=== PATIENT | female | born 1945 | race Caucasian/White ===

== ENCOUNTER → 2019-07-15 | Outpatient (REF) | payer MEDICARE | LOC: M LABDRWAD 12:56 | PROVIDERS: ATTEND Physician Assistant | DX: R19.7 Diarrhea, unspecified (principal) ==

== ENCOUNTER → 2019-07-16 | Outpatient (REF) | payer MEDICARE | LOC: M LABDRWAD 12:58 | PROVIDERS: ATTEND Physician Assistant | DX: R19.7 Diarrhea, unspecified (principal) ==

== ENCOUNTER 2020-09-21 13:03 | Inpatient (IN) | payer MEDICARE ==
[~2020-09-21] VITALS: Ht 162.6 cm; Wt 74.7 kg
[2020-09-21 15:38] LABS: BASO # 0.1 10^3/uL (0.0-0.2); BASO % 0.9 % (0.0-1.0); EOS # 0.2 10^3/uL (0.0-0.5); EOS % 1.8 % (0.0-3.0); HEMATOCRIT 44.3 % (36.0-47.0); HEMOGLOBIN 13.8 g/dl (12.0-15.5); LYMPH % 23.1 % (24.0-44.0); MEAN CORPUSCULAR HEMOGLOBIN 27.8 pg (27.0-33.0); MEAN CORPUSCULAR HGB CONC 31.2 g/dl (32.0-36.5); MEAN CORPUSCULAR VOLUME 89.3 fl (80.0-96.0); MONO # 0.7 10^3/uL (0.0-0.8); MONO % 8.2 % (2.0-8.0); NEUTROPHILS # 5.8 10^3/uL (1.5-8.5); NEUTROPHILS % 65.7 % (36.0-66.0); PLATELET COUNT, AUTOMATED 248 10^3/uL (150-450); RED BLOOD COUNT 4.96 10^6/uL (4.00-5.40); WHITE BLOOD COUNT 8.8 10^3/uL (4.0-10.0)
[2020-09-21 16:11] LABS: BLOOD UREA NITROGEN 14 MG/DL (7-18); CALCIUM LEVEL 7.4 MG/DL (8.8-10.2); CARBON DIOXIDE LEVEL 16 MEQ/L (21-32); CHLORIDE LEVEL 86 MEQ/L (98-107); CREATININE FOR GFR 0.71 MG/DL (0.55-1.30); GLOMERULAR FILTRATION RATE > 60.0 (>39); GLUCOSE, FASTING 95 MG/DL (70-100); POTASSIUM SERUM 3.2 MEQ/L (3.5-5.1); SODIUM LEVEL 151 MEQ/L (136-145)
[2020-09-21] MEDS ORDERED: BACITAB PO (17:30)
[2020-09-21] MEDS ORDERED: DORZ2SOL5 OU (17:30)
[2020-09-21] MEDS ORDERED: SERT50TA29 PO (17:30)
[2020-09-21] MEDS ORDERED: XALA0.007 OU (17:30)
[2020-09-21] MEDS ORDERED: VITA-158 PO (17:30)
[2020-09-21] MEDS ORDERED: HYDR-643 PO ×2 (17:30)
[2020-09-21] MEDS ORDERED: D31000TA2 PO (17:30)
[2020-09-21] MEDS ORDERED: SIMV20TA22 PO (17:30)
[2020-09-21] MEDS ORDERED: FIBE625T PO (17:30)
[2020-09-21] MEDS ORDERED: POTASSIUM CHLORIDE 10 MEQ SR TABLET PO ONE (18:25)
--- NOTE | 2020-09-21 18:33 | HPEPDOC ---
[facility] Medical History & Physical Date of Admission Sep 21, 2020 Date of Service: Sep 21, 2020 History and Physical CHIEF COMPLAINT: diarrhea HISTORY OF PRESENT ILLNESS: 74 yo F with a hx of Alzheimer's disease and debility, brought to ER by her daughter, with a complaint of chronic watery diarrhea for the past 12 months, associated with poor PO intake and a weight loss of ~30 lbs. The majority of the history was obtained from the patient's daughter, as the patient's dementia is advanced. The primary caregiver is the patient's son, who lives with her. There has been no laxative use. No blood in stool has been seen. Abdominal distension is a concern from family. Diarrhea is watery, with small pieces of brown stool. Patient had 12 loose bowel movements yesterday. Further, patient has been experiencing frequent falls and is unable to ascend stairs. Finally, patient has gained ~40 lbs since her prior weight loss, despite a reduced appetite and PO intake. On arrival to the ER, patient was awake, and alert but not oriented to person place or time which is her baseline. Vitals review. T 97.8. HR 66. RR 18. BP 143/98. Pulse ox 97%.WBC 8.8. Hgb 13.8. PLT 248. Na 151. K 3.2. Cl 86. CO2 14. AG 49. AST/ALT 24/30. POC ABG showed a pH 7.475, although blood chemisty bicarb indicates metabolic acidosis. Blood cultures sent from ER. GI panel sent. Patient will be admitted to hospitalist service for management of metabolic acidosis 2/2 copious GI losses. PAST MEDICAL HISTORY: Alzheimer's disease Debility Hx of frequent falls PAST SURGICAL HISTORY: reported as none SOCIAL HISTORY: Patient denies smoking Patient denies etoh use Patient denies illicit drug use ALLERGIES: Please see below. REVIEW OF SYSTEMS: review of systems limited, obtained as observations from daughter. Noted in HPI. HOME MEDICATIONS: Please see below. PHYSICAL EXAMINATION: VITAL SIGNS: please see below General: NAD, comfortable HEENT: PERRLA, EOMI, sclerae clear Neck: supple, normal ROM, no JVD Respiratory: lungs CTAB, no wheeze, no rales, no crackles CVS: RRR, normal S1, S2, no murmurs Abdo: soft, no masses, no hepatosplenomegaly, BS+, no rebound tenderness Extremities: trace edema. MSK: no joint deformities, normal ROM Neuro: no focal neuro deficits, moving all 4 extremities, CN2-12 intact. Strength 5/5 in all 4 extremities. No nystagmus. Psych: calm, cooperative, AAO x 3 LABORATORY DATA: See below. MICROBIOLOGY: Please see below. ASSESSMENT: HISTORY OF PRESENT ILLNESS: 74 yo F with a hx of Alzheimer's disease and debility, brought to ER by her daughter, with a complaint of chronic watery diarrhea for the past 12 months, associated with poor PO intake and a weight loss of ~30 lbs, followed by weight gain and abdominal distension with edema. Patient is admitted to hospitalist service for workup of chronic diarrhea, metabolic acidosis and edema. PLAN: Metabolic anion gap acidosis with hypernatremia 2/2 chronic copious diarrhea - afebrile without leukocytosis - despite edema, appears clinically fluid depleted - Free water deficit 2.5L - will start D5W with 50 meq sodium bicarb at 125 cc/hr - D/w Dr. Jayjay Lim, nephrology consult placed - obtain ABG Hypernatremia - free water deficit 2.5L - start D5W with 50 meq bicarb Chronic diarrhea - ongoing for 12 months, non bloody - reduced PO intake - replace fluid - check stool lactoferrin, stool calprotectin - check GI panel - no leukocytosis or fever, will defer antibiotics at this time Peripheral edema - daughter reports a 40 lbs weight gains since dramatic 30 lb weight loss - BNP slightly elevated 450 - check 2D echo Alzheimer's Dementia - Frequent falls - PT/OT DVT ppx: heparin. TEDs Dispo: Pending clinical improvement. Admission expected to last > 2 midnights. Vital Signs Vital Signs Date Time Temp Pulse Resp B/P (MAP) Pulse Ox O2 Delivery O2 Flow Rate FiO2 09/21/20 15:37 Automatic Cuff (NIBP) Right Arm 09/21/20 13:04 97.8 66 18 97 Room Air Laboratory Data Labs 24H Laboratory Tests 2 09/21/20 15:29: Immature Granulocyte % (Auto) 0.3, Neutrophils (%) (Auto) 65.7, Lymphocytes (%) (Auto) 23.1L, Monocytes (%) (Auto) 8.2H, Eosinophils (%) (Auto) 1.8, Basophils (%) (Auto) 0.9, Neutrophils # (Auto) 5.8, Lymphocytes # (Auto) 2.0, Monocytes # (Auto) 0.7, Eosinophils # (Auto) 0.2, Basophils # (Auto) 0.1, Nucleated Red Blood Cells % (auto) 0.0, Anion Gap 49H, Glomerular Filtration Rate > 60.0, Calcium Level 7.4L 09/21/20 17:22: POC pH (Misc Panel) 7.475H, POC Base Excess (Misc Panel) -5.0L, POC Saturated Percent O2 (Misc) 98, POC pO2 (Misc Panel) 93.0, POC pCO2 (Misc Panel) 25.3L, POC HCO3 (Misc Panel) 18.6L, POC Total CO2 (Misc Panel) 19.0L CBC/BMP Laboratory Tests 09/21/20 15:29 Home Medications Scheduled Ascorbic Acid (Vitamin C) 500 Mg Tablet, 500 MG PO DAILY Calcium Polycarbophil (Fibercon) 625 Mg Tablet, 625 MG PO DAILY Cholecalciferol (Vitamin D3) (Vitamin D3) 1,000 Unit Tablet, 1,000 UNITS PO DAILY Dorzolamide HCl/Timolol Maleat (Dorzolamide-Timolol Eye Drops) 10 Ml Drops, 1 DROP OU BID Hydroxyzine HCl (Hydroxyzine HCl) 10 Mg Tablet, 20 MG PO QHS L.acidoph/L.bulg/B.bif/S.therm (Bacid Caplet) 1 Each Tablet, 1 TAB PO DAILY Latanoprost (Xalatan) 0.005% 2.5ML Drops, 1 DROP OU QHS Sertraline HCl (Sertraline HCl) 50 Mg Tablet, 50 MG PO DAILY Simvastatin (Simvastatin) 20 Mg Tablet, 20 MG PO DAILY Scheduled PRN Hydroxyzine HCl (Hydroxyzine HCl) 10 Mg Tablet, 10 MG PO BID PRN for ANXIETY/AGITATION Allergies Coded Allergies: No Known Drug Allergies (Verified Allergy, Unknown, 09/21/20) Penicillins (Unverified Allergy, Unknown, childhood allergy, 09/21/20) as per daughter, reaction unknown Sulfa (Sulfonamide Antibiotics) (Unverified Allergy, Unknown, childhood allergy, 09/21/20) as per daughter unknown reaction A-FIB/CHADSVASC A-FIB History Current/History of A-Fib/PAF?: No Current PO Anticoag Therapy: No DEANGELO COLLADO MD Sep 21, 2020 18:33
[2020-09-21] MEDS: GASTROGRAFIN SOLUTION 30ML PO SCH ×2 (19:01→19:43)
[2020-09-21 19:26] LABS: ALT/SGPT 30 IU/L (0-32); CPK CREATINE PHOSPHOKINASE 94 U/L (26-192)
[2020-09-21 19:27] LABS: BILIRUBIN,DIRECT 0.1 MG/DL (0.0-0.2); BILIRUBIN,TOTAL 0.6 MG/DL (0.2-1.0); CK-MB VALUE MASS 3.1 NG/ML (<3.6); MB/CK RELATIVE INDEX 3.29 (< OR =4); TOTAL PROTEIN 6.7 GM/DL (6.4-8.2)
[2020-09-21 19:28] LABS: ALBUMIN 3.7 GM/DL (3.2-5.2); LIPASE 227 U/L (73-393); MAGNESIUM LEVEL 2.3 MG/DL (1.8-2.4); NT-PRO BNP 448 PG/ML (<125); TROPONIN I 0.02 NG/ML (< 0.10)
[2020-09-21] MEDS ORDERED: SODIUM BICARBONATE 50 MEQ in D5W 1,000 ML IV SCH (20:00)
[2020-09-21] MEDS ORDERED: ISOVUE-370 76% 100ML VIAL As Ordered ONE (20:30)
--- NOTE | 2020-09-21 21:23 | REPVR ---
PROCEDURE INFORMATION: Exam: CT Abdomen And Pelvis With Contrast Exam date and time: 09/21/2020 8:29 PM Age: 74 years old Clinical indication: Bloating; Additional info: Severe diarrhea, abdominal distension TECHNIQUE: Imaging protocol: Computed tomography of the abdomen and pelvis with contrast. Radiation optimization: All CT scans at this facility use at least one of these dose optimization techniques: automated exposure control; mA and/or kV adjustment per patient size (includes targeted exams where dose is matched to clinical indication); or iterative reconstruction. Contrast material: ISOVUE 370; Contrast volume: 100 ml; Contrast route: INTRAVENOUS (IV); COMPARISON: No relevant prior studies available. FINDINGS: Liver: There is a diffuse decrease in hepatic parenchymal density, consistent with steatosis. Gallbladder and bile ducts: Normal. No calcified stones. No ductal dilation. Pancreas: There is diffuse pancreatic atrophy. Spleen: Normal. No splenomegaly. Adrenal glands: Normal. No mass. Kidneys and ureters: 2.7 cm simple cyst upper pole left kidney. No follow-up suggested. Stomach and bowel: There is increased fluid demonstrated in the colon consistent with the reported history of diarrhea. No mass demonstrated. Appendix: No evidence of appendicitis. Intraperitoneal space: Unremarkable. No free air. No significant fluid collection. Vasculature: Unremarkable. No abdominal aortic aneurysm. Lymph nodes: Unremarkable. No enlarged lymph nodes. Urinary bladder: There is mild diffuse thickening of the wall of the bladder with minimal perivesicular inflammatory changes. Findings may be related to cystitis. Clinical correlation suggested. Reproductive: Unremarkable as visualized. Bones/joints: The spine demonstrates moderate degenerative changes. Moderate to severe central spinal stenosis L2-L3, L3-L4 and L4-L5. Disc space narrowing throughout the lumbar spine. Soft tissues: Unremarkable. Other findings: Osteoporosis. IMPRESSION: 1. There is a diffuse decrease in hepatic parenchymal density, consistent with steatosis. 2. There is diffuse pancreatic atrophy. 3. There is increased fluid demonstrated in the colon consistent with the reported history of diarrhea. No mass demonstrated. 4. There is mild diffuse thickening of the wall of the bladder with minimal perivesicular inflammatory changes. Findings may be related to cystitis. Clinical correlation suggested. COMMENTS: Consistent with the [employer]'s Incidental Findings Committee white paper (J Am Alicia Radiol 2018): Any incidental renal lesion less than 1 cm or classified as too small to characterize, or any incidental cystic renal lesion characterized as simple-appearing, is likely benign. No follow-up imaging is recommended for these lesions per consensus recommendations based on imaging criteria. Electronically signed by: Carlos Manuel Heaton On 09/21/2020 21:24:07 PM
[2020-09-21] MEDS: HEPARIN SOD (PORCINE) 5000UNITS/ML 1ML VIAL/SYRINGE SC SCH (22:00)
[2020-09-21 22:15] LABS: ACETAMINOPHEN LEVEL < 2.0 UG/ML (10.0-30.0); ACETONE/KETONE 2.22 MG/DL (<2.81); ETHYL ALCOHOL (ETHANOL) < 0.003 % (0.000-0.010); SALICYLATE LEVEL < 1.7 MG/DL (5.0-30.0)
[2020-09-21] MEDS ORDERED: OLANZapine 2.5MG TABLET PO ONE (22:55)
[2020-09-21] MEDS ORDERED: ENALAPRIL MALEATE 5 MG TAB PO ONE (23:55)
--- NOTE | 2020-09-21 23:55 | IPNPDOC ---
Text Note Date of Service The patient was seen on 09/21/20. NOTE #hypertensive urgency the patient's BP is in the 190s despite amlodipine will order enalaprilat & upgrade to PCU Michi LAWSON, I+O Michi LAWSON I+O Laboratory Tests 09/21/20 15:29 Vital Signs Date Time Temp Pulse Resp B/P (MAP) Pulse Ox O2 Delivery O2 Flow Rate FiO2 09/21/20 22:38 172/80 (110) 09/21/20 22:20 77 09/21/20 21:31 17 98 Room Air 09/21/20 13:04 97.8 LAURA ZUNIGA MD Sep 21, 2020 23:55
[2020-09-22 00:50] VITALS: BP 166/78
[2020-09-22] MEDS: LATANOPROST 0.005% OPHTH SOLN 2.5 ML OU SCH ×2 (01:55→21:00)
[2020-09-22] MEDS: COSOPT OCUMETER PLUS 10ML (DORZOLAMIDE/TIMOLOL) OU SCH ×3 (01:55→21:00)
[2020-09-22 03:07] LABS: ABG BASE EXCESS -3.3 (-2.0-2.0); ABG HCO3 20.4 MEQ/L (22.0-26.0); ABG O2 SATURATION 98.4 % (95.0-99.0); ABG PARTIAL PRESSURE CO2 32.4 mmHg (35.0-45.0); ABG STANDARD HCO3 21.8 MEQ/L (22.0-26.0); ABG TOTAL CO2 21.4 MEQ/L (23.0-31.0); ABG pH (ARTERIAL) 7.416 UNITS (7.350-7.450)
[2020-09-22 04:00] VITALS: BP 152/98
[2020-09-22 06:02] LABS: BASO # 0.1 10^3/uL (0.0-0.2); BASO % 0.6 % (0.0-1.0); EOS # 0.2 10^3/uL (0.0-0.5); EOS % 1.6 % (0.0-3.0); HEMATOCRIT 38.9 % (36.0-47.0); HEMOGLOBIN 12.4 g/dl (12.0-15.5); LYMPH # 2.2 10^3/uL (1.5-5.0); LYMPH % 21.1 % (24.0-44.0); MEAN CORPUSCULAR HGB CONC 31.9 g/dl (32.0-36.5); MEAN CORPUSCULAR VOLUME 87.8 fl (80.0-96.0); MONO # 0.8 10^3/uL (0.0-0.8); MONO % 7.4 % (2.0-8.0); NEUTROPHILS # 7.1 10^3/uL (1.5-8.5); NEUTROPHILS % 68.8 % (36.0-66.0); PLATELET COUNT, AUTOMATED 239 10^3/uL (150-450); RED BLOOD COUNT 4.43 10^6/uL (4.00-5.40); WHITE BLOOD COUNT 10.3 10^3/uL (4.0-10.0)
[2020-09-22] MEDS: HEPARIN SOD (PORCINE) 5000UNITS/ML 1ML VIAL/SYRINGE SC SCH ×2 (06:48→14:00)
--- NOTE | 2020-09-22 06:52 | REP ---
INDICATION: assess for fluid overload COMPARISON: None. TECHNIQUE: Portable AP view of the chest FINDINGS: Mediastinum and cardiac silhouette are within normal limits. Lung briceno demonstrate chronic appearing changes although subtle left lower lobe airspace disease cannot be excluded and should be correlated clinically. No obvious effusion. No pneumothorax. Skeletal structures demonstrate age-related osteopenia and degenerative changes. IMPRESSION: Chronic changes. Cannot exclude subtle superimposed early left lower lobe airspace disease. <Electronically signed by Donnie Hernandez > 09/22/20 [id number]
[2020-09-22 07:40] LABS: ALBUMIN 3.3 GM/DL (3.2-5.2); ALT/SGPT 26 U/L (12-78); BILIRUBIN,TOTAL 0.6 MG/DL (0.2-1.0); BLOOD UREA NITROGEN 15 MG/DL (7-18); CALCIUM LEVEL 8.9 MG/DL (8.8-10.2); CARBON DIOXIDE LEVEL 22 MEQ/L (21-32); CHLORIDE LEVEL 113 MEQ/L (98-107); CREATININE FOR GFR 0.88 MG/DL (0.55-1.30); GLOMERULAR FILTRATION RATE > 60.0 (>39); GLUCOSE, FASTING 144 MG/DL (70-100); IRON (FE) 48 UG/DL (50-170); MAGNESIUM LEVEL 2.1 MG/DL (1.8-2.4); PERCENT SATURATION 15.8 % (13.2-45.0); SODIUM LEVEL 141 MEQ/L (136-145); TOTAL IRON BINDING CAPACITY 303 UG/DL (250-450); TOTAL PROTEIN 6.2 GM/DL (6.4-8.2)
[2020-09-22 08:00] VITALS: BP 134/64
[2020-09-22] MEDS ORDERED: cefTRIAXone SOD 1 GM in D5W MINI-BAG PLUS 50 ML IV SCH (09:00)
[2020-09-22] MEDS: SIMVASTATIN 20 MG TAB PO SCH (11:27)
[2020-09-22] MEDS: SERTRALINE HCL 50 MG TAB PO SCH (11:27)
[2020-09-22] MEDS: VITAMIN D 1,000 INTERNATIONAL UNITS TABLET PO SCH (11:27)
[2020-09-22] MEDS: LACTOBACILLUS ACIDOPHILUS CAP (BACID) PO SCH (11:28)
[2020-09-22] MEDS: ASCORBIC ACID 500 MG TAB PO SCH (11:28)
[2020-09-22 12:00] VITALS: BP 151/79
[2020-09-22 16:00] VITALS: BP 157/66
--- NOTE | 2020-09-22 17:51 | IPNPDOC ---
Date Seen The patient was seen on 09/22/20. Progress Note SUBJECTIVE: Patient seen and examined at bedside with her daughter. She did well overnight. Did have an episode of hypertensive urgency which is treated with enalapril. Patient is behaviorally appropriate. She is pleasant and cooperative. Daughter states that she is having particularly feelings about taking her home. She feels that the patient would best be cared for in a nursing facility due to her advanced Alzheimer's. Her diarrhea frequency seems to be improving. She had approximately 6 bowel movements overnight sure watery. No blood. Patient is afebrile with stable vital signs. OBJECTIVE PHYSICAL EXAMINATION: VITAL SIGNS: please see below General: NAD, comfortable HEENT: PERRLA, EOMI, sclerae clear Neck: supple, normal ROM, no JVD Respiratory: lungs CTAB, no wheeze, no rales, no crackles CVS: RRR, normal S1, S2, no murmurs Abdo: soft, no masses, no hepatosplenomegaly, BS+, no rebound tenderness Extremities: no edema, pulses 2+ MSK: no joint deformities, normal ROM Neuro: no focal neuro deficits, moving all 4 extremities, CN2-12 intact. Strength 5/5 in all 4 extremities. No nystagmus. Psych: calm, cooperative, AAO x 3 LABORATORY DATA, IMAGING STUDIES, MICROBIOLOGY: Please see below. CT abdomen pelvis w IV contrast (09/21/20) 1. There is a diffuse decrease in hepatic parenchymal density, consistent with steatosis. 2. There is diffuse pancreatic atrophy. 3. There is increased fluid demonstrated in the colon consistent with the reported history of diarrhea. No mass demonstrated. 4. There is mild diffuse thickening of the wall of the bladder with minimal perivesicular inflammatory changes. Findings may be related to cystitis. Clinical correlation suggested. Echocardiogram: Echocardiogram was ordered on 09/21/20, but the patient refused unable to comply with testing DVT prophylaxis ordered?: Heparin ASSESSMENT AND PLAN: HISTORY OF PRESENT ILLNESS: 74 yo F with a hx of Alzheimer's disease and debility, brought to ER by her daughter, with a complaint of chronic watery diarrhea for the past 12 months, associated with poor PO intake and a weight loss of ~30 lbs, followed by weight gain and abdominal distension with edema. Patient is admitted to hospitalist service for workup of chronic diarrhea, metabolic acidosis and edema. PLAN: Metabolic anion gap acidosis with hypernatremia 2/2 chronic copious diarrhea - afebrile without leukocytosis - despite edema, appears clinically fluid depleted - Free water deficit 2.5L - recived D5W with 50 meq sodium bicarb at 125 cc/hr - BMP greatly improved today, anion gap has closed - patient tolerating PO intake - DC IVF Hypernatremia - free water deficit 2.5L - s/p D5W with 50 meq bicarb - resolved Chronic diarrhea - ongoing for 12 months, non bloody - reduced PO intake - s/p IVF - stool lactoferrin, stool calprotectin negative - check GI panel - negative - no leukocytosis or fever, will defer antibiotics at this time - will start high fiber diet. if not improvement, consider trial with lomotil on limit basis given age and Alzheimers Peripheral edema - daughter reports a 40 lbs weight gains since dramatic 30 lb weight loss - BNP slightly elevated 450 - check 2D echo - patient refused testing, was unable to be reoriented - will not give diuretics at this stage due to frequent watery diarrhea Alzheimer's Dementia Frequent falls - PT/OT DVT ppx: heparin. TEDs Dispo: Pending clinical improvement. Admission expected to last > 2 midnights. VS, I&O, 24H[facility] Vital Signs/I&O Vital Signs Date Time Temp Pulse Resp B/P (MAP) Pulse Ox O2 Delivery O2 Flow Rate FiO2 09/22/20 12:00 98.3 71 18 151/79 (103) 100 Room Air I&O- Last 24 Hours up to 6 AM 09/22/20 06:00 Intake Total 120 ml Output Total 400 ml Balance -280 ml Laboratory Data 24H LABS Laboratory Tests 2 09/21/20 18:15: Lactic Acid Level 1.6, Whole Blood Ionized Calcium 4.5, Magnesium Level 2.3, Total Bilirubin 0.6, Direct Bilirubin 0.1, Aspartate Amino Transf (AST/SGOT) 24, Alanine Aminotransferase (ALT/SGPT) 30, Alkaline Phosphatase 67, Ammonia 17, Total Creatine Kinase 94, Creatine Kinase MB 3.1, Creatine Kinase MB Relative Index 3.29, Troponin I 0.02, DP-Pas-L-Type Natriuretic Peptide 448H, Total Protein 6.7, Albumin 3.7, Albumin/Globulin Ratio 1.2, Lipase 227, Thyroid Stimulating Hormone (TSH) 1.080, Salicylates Level < 1.7L, Acetaminophen Level < 2.0L, Ethyl Alcohol Level < 0.003, B-Hydroxybutyrate 2.22 09/22/20 02:59: Blood Gas Bicarbonate Standard 21.8L, Arterial Blood pH 7.416, Arterial Blood Partial Pressure CO2 32.4L, Arterial Blood Partial Pressure O2 111.0H, Arterial Blood Total CO2 21.4L, Arterial Blood HCO3 20.4L, Arterial Blood Base Excess - 3.3L, Arterial Blood Oxygen Saturation 98.4 09/22/20 03:38: Urine Color YELLOW, Urine Appearance CLOUDYH, Urine pH 7.0, Urine Specific [place] 1.027, Urine Protein NEGATIVE, Urine Glucose (UA) NEGATIVE, Urine Ketones NEGATIVE, Urine Blood 2+H, Urine Nitrite POSITIVEH, Urine Bilirubin NEGATIVE, Urine Urobilinogen 0.2, Urine Leukocyte Esterase 3+H, Urine WBC (Auto) TNTCH, Urine RBC (Auto) 37H, Urine Hyaline Casts (Auto) 0, Urine Bacteria (Auto) 1+H, Urine Squamous Epithelial Cells 0, Urine Mucus (Auto) SMALL, Urine Sperm ( Auto) 09/22/20 03:51: 09/22/20 05:29: Immature Granulocyte % (Auto) 0.5, Neutrophils (%) (Auto) 68.8H, Lymphocytes (%) (Auto) 21.1L, Monocytes (%) (Auto) 7.4, Eosinophils (%) (Auto) 1.6, Basophils (%) (Auto) 0.6, Neutrophils # (Auto) 7.1, Lymphocytes # (Auto) 2.2, Monocytes # (Auto) 0.8, Eosinophils # (Auto) 0.2, Basophils # (Auto) 0.1, Nucleated Red Blood Cells % (auto) 0.0, Anion Gap 6L, Glomerular Filtration Rate > 60.0, Calcium Level 8.9#, Magnesium Level 2.1, Iron Level 48L, Total Iron Binding Capacity 303, Transferrin % Saturation 15.8, Total Bilirubin 0.6, Aspartate Amino Transf (AST/SGOT) 21, Alanine Aminotransferase (ALT/SGPT) 26, Alkaline Phosphatase 57, Total Protein 6.2L, Albumin 3.3, Albumin/Globulin Ratio 1.1L 09/22/20 10:49: Lab Scanned Report Miscellaneous Lab CBC/BMP Laboratory Tests 09/22/20 05:29 Microbiology Microbiology 09/22/20 Urine Culture, Received Pending 09/22/20 Stool Occult Blood (RICKY) - Final, Complete 09/22/20 Stool Lactoferrin - Final, Complete 09/22/20 Gastrointestinal Tract Panel (PCR) - Final, Complete 09/21/20 Respiratory Virus Panel (PCR) (RICKY) - Final, Complete 09/21/20 Blood Culture, Received Pending 09/21/20 Blood Culture, Received Pending DEANGELO COLLADO MD Sep 22, 2020 17:51
--- NOTE | 2020-09-22 19:45 | ECGEPIP ---
[facility] - ED Test Date: 2020-09-21 Pat Name: DINAH SMITH Department: Room: - Gender: Female Biology Tutor: ALONZO : 1945 Requested By: SCOTTIE Kaufman PA-C Order Number: [id number] Reading MD: Rosario Valverde Measurements Intervals [place] Rate: 64 P: 51 FL: 140 QRS: 30 QRSD: 60 T: 27 QT: 422 QTc: 435 Interpretive Statements Normal sinus rhythm Nonspecific ST abnormality No prior Electronically Signed on 09-22-2020 19:46:10 EDT by Rosario Valverde
[2020-09-22 19:57] VITALS: BP 145/87
[2020-09-22] MEDS ORDERED: FOSFOMYCIN TROMETHAMINE 3 GM POWDER PACKET (MONUROL) PO ONE (20:00)
[2020-09-22] MEDS ORDERED: RAMELTEON 8 MG TAB (ROZEREM) PO PRN (22:00)
[2020-09-23] VITALS: BP_SYST 140; BP_DIAS 70; BP_DIAS 80
[2020-09-23] MEDS: LATANOPROST 0.005% OPHTH SOLN 2.5 ML OU SCH (00:01)
[2020-09-23 04:00] VITALS: BP 106/55
[2020-09-23] MEDS: HEPARIN SOD (PORCINE) 5000UNITS/ML 1ML VIAL/SYRINGE SC SCH ×2 (06:49)
[2020-09-23 07:58] VITALS: BP 121/60
[2020-09-23] MEDS: SIMVASTATIN 20 MG TAB PO SCH (09:18)
[2020-09-23] MEDS: LACTOBACILLUS ACIDOPHILUS CAP (BACID) PO SCH (09:18)
[2020-09-23] MEDS: ASCORBIC ACID 500 MG TAB PO SCH (09:18)
[2020-09-23] MEDS: COSOPT OCUMETER PLUS 10ML (DORZOLAMIDE/TIMOLOL) OU SCH ×2 (09:19)
[2020-09-23] MEDS: VITAMIN D 1,000 INTERNATIONAL UNITS TABLET PO SCH (09:19)
[2020-09-23] MEDS: SERTRALINE HCL 50 MG TAB PO SCH (09:19)
--- NOTE | 2020-09-23 09:56 | DS.PDOC ---
Discharge Summary General Date of Admission Sep 21, 2020 at 19:04 Date of Discharge 09/23/20 Discharge Summary PROCEDURES PERFORMED DURING STAY: [None]. ADMITTING DIAGNOSES: Metabolic anion gap acidosis hypernatremia chronic diarrhea peripheral edema hx of alzheimer's dementia falls DISCHARGE DIAGNOSES: Metabolic anion gap acidosis hypernatremia chronic diarrhea peripheral edema hx of alzheimer's dementia falls hypertensive urgency COMPLICATIONS/CHIEF COMPLAINT: Dehydration. HISTORY OF PRESENT ILLNESS: 74 yo F with a hx of Alzheimer's disease and debility, brought to ER by her daughter, with a complaint of chronic watery diarrhea for the past 12 months, associated with poor PO intake and a weight loss of ~30 lbs. The majority of the history was obtained from the patient's daughter, as the patient's dementia is advanced. The primary caregiver is the patient's son, who lives with her. There has been no laxative use. No blood in stool has been seen. Abdominal distension is a concern from family. Diarrhea is watery, with small pieces of brown stool. Patient had 12 loose bowel movements yesterday. Further, patient has been experiencing frequent falls and is unable to ascend stairs. Finally, patient has gained ~40 lbs since her prior weight loss, despite a reduced appetite and PO intake. On arrival to the ER, patient was awake, and alert but not oriented to person place or time which is her baseline. Vitals review. T 97.8. HR 66. RR 18. BP 143/98. Pulse ox 97%.WBC 8.8. Hgb 13.8. PLT 248. Na 151. K 3.2. Cl 86. CO2 14. AG 49. AST/ALT 24/30. POC ABG showed a pH 7.475, although blood chemisty bicarb indicates metabolic acidosis. Blood cultures sent from ER. GI panel sent. Patient will be admitted to hospitalist service for management of metabolic acidosis 2/2 copious GI losses. HOSPITAL COURSE: Metabolic anion gap acidosis with hypernatremia 2/2 chronic copious diarrhea - afebrile without leukocytosis - despite edema, appears clinically fluid depleted - Free water deficit 2.5L - recived D5W with 50 meq sodium bicarb at 125 cc/hr - BMP greatly improved, anion gap has closed - patient tolerating PO intake - DC IVF Hypernatremia - free water deficit 2.5L - s/p D5W with 50 meq bicarb - resolved Chronic diarrhea - ongoing for 12 months, non bloody - reduced PO intake - s/p IVF - stool lactoferrin, stool calprotectin negative - check GI panel - negative - no leukocytosis or fever, will defer antibiotics at this time - started high fiber diet - Diarrhea improved by day of DC, had 1 BM the day of DC. Volume and frequency of diarrhea declining - patient is able to tolerate PO diet well - to follow up with GI on outpatient basis. Peripheral edema - daughter reports a 40 lbs weight gains since dramatic 30 lb weight loss - BNP slightly elevated 450 - check 2D echo - patient refused testing, was unable to be reoriented - will not give diuretics at this stage due to frequent watery diarrhea HTN - started on amlodipine 2.5 mg qhs Alzheimer's Dementia - family consider placement to [facility] - c/w home regimen, PCP follow up Frequent falls - PT recommending DC home with 30/12 support - discussed with daughter at bedside, the family is able to provided this level of support - family presently discussing possibility of admission to [facility] in near future. DVT ppx: heparin. TEDs DISCHARGE MEDICATIONS: Please see below. ALLERGIES: Please see below. PHYSICAL EXAMINATION ON DISCHARGE: VITAL SIGNS: please see below General: NAD, comfortable HEENT: PERRLA, EOMI, sclerae clear Neck: supple, normal ROM, no JVD Respiratory: lungs CTAB, no wheeze, no rales, no crackles CVS: RRR, normal S1, S2, no murmurs Abdo: soft, no masses, no hepatosplenomegaly, BS+, no rebound tenderness Extremities: trace edema, pulses 2+ MSK: no joint deformities, normal ROM Neuro: no focal neuro deficits, moving all 4 extremities, CN2-12 intact. Strength 5/5 in all 4 extremities. No nystagmus. Psych: calm, cooperative, AAO x 1 LABORATORY DATA: Please see below. IMAGING: CT abdo pelvis with IV contrast (09/21/20): 1. There is a diffuse decrease in hepatic parenchymal density, consistent with steatosis. 2. There is diffuse pancreatic atrophy. 3. There is increased fluid demonstrated in the colon consistent with the reported history of diarrhea. No mass demonstrated. 4. There is mild diffuse thickening of the wall of the bladder with minimal perivesicular inflammatory changes. Findings may be related to cystitis. Clinical correlation suggested. CXR (09/22/20): Chronic changes. Cannot exclude subtle superimposed early left lower lobe airspace disease. PROGNOSIS: fair ACTIVITY: 30/12 supervision, use walker. DIET: High fiber diet DISCHARGE PLAN: DC home with /7 care by family. Plan for high fiber diet to improve diarrhea. Follow up with PCP 3-5 days and with gastroenterology in 1-2 weeks. DISPOSITION: DC home with /7 care by family. DISCHARGE INSTRUCTIONS: . Please follow-up with your primary care doctor within 3-5 days . Please follow-up with gastroenterology within 1-2 weeks . Please taking medications as prescribed. . Please follow a high fiber diet . If you develop worsening diarrhea, bleeding, chest pain, shortness of breath, seizures, nausea, fevers, or otherwise worsening of your symptoms, please call 911 or return to the nearest emergency room ITEMS TO FOLLOWUP ON ON OUTPATIENT: I recommend a 2D echo to be done as outpatient, as patient has refused in hospital. Follow up with GI for chronic diarrhea DISCHARGE CONDITION: [Stable]. TIME SPENT ON DISCHARGE: Greater than minutes. Vital Signs/I&Os Vital Signs Date Time Temp Pulse Resp B/P (MAP) Pulse Ox O2 Delivery O2 Flow Rate FiO2 09/23/20 07:58 97.7 68 17 121/60 (80) 99 Room Air I&O- Last 24 Hours up to 6 AM 09/23/20 06:00 Intake Total 100 ml Output Total 700 ml Balance -600 ml Laboratory Data Labs 24H Laboratory Tests 2 09/22/20 10:49: Lab Scanned Report Miscellaneous Lab Microbiology Microbiology 09/22/20 Urine Culture, Received Pending 09/22/20 Stool Occult Blood (RICKY) - Final, Complete 09/22/20 Stool Lactoferrin - Final, Complete 09/22/20 Gastrointestinal Tract Panel (PCR) - Final, Complete 09/21/20 Respiratory Virus Panel (PCR) (RICKY) - Final, Complete 09/21/20 Blood Culture - Preliminary, Resulted No growth after 24 hours . All specim... 09/21/20 Blood Culture - Preliminary, Resulted No growth after 24 hours . All specim... Discharge Medications Scheduled Amlodipine Besylate (Amlodipine Besylate) 2.5 Mg Tablet, 2.5 MG PO QHS Ascorbic Acid (Vitamin C) 500 Mg Tablet, 500 MG PO DAILY, (Reported) Calcium Polycarbophil (Fibercon) 625 Mg Tablet, 625 MG PO DAILY, (Reported) Cholecalciferol (Vitamin D3) (Vitamin D3) 1,000 Unit Tablet, 1,000 UNITS PO DAILY, (Reported) Dorzolamide HCl/Timolol Maleat (Dorzolamide-Timolol Eye Drops) 10 Ml Drops, 1 DROP OU BID, (Reported) Hydroxyzine HCl (Hydroxyzine HCl) 10 Mg Tablet, 20 MG PO QHS, (Reported) L.acidoph/L.bulg/B.bif/S.therm (Bacid Caplet) 1 Each Tablet, 1 TAB PO DAILY, (Reported) Latanoprost (Xalatan) 0.005% 2.5ML Drops, 1 DROP OU QHS, (Reported) Sertraline HCl (Sertraline HCl) 50 Mg Tablet, 50 MG PO DAILY, (Reported) Simvastatin (Simvastatin) 20 Mg Tablet, 20 MG PO DAILY, (Reported) Scheduled PRN Hydroxyzine HCl (Hydroxyzine HCl) 10 Mg Tablet, 10 MG PO BID PRN for ANXIETY/ AGITATION, (Reported) Allergies Coded Allergies: Penicillins (Unverified Allergy, Unknown, childhood allergy, 09/21/20) as per daughter, reaction unknown Sulfa (Sulfonamide Antibiotics) (Unverified Allergy, Unknown, childhood allergy, 09/21/20) as per daughter unknown reaction DEANGELO COLLADO MD Sep 23, 2020 09:56
[2020-09-23] MEDS ORDERED: AMLO25TA PO (10:25)
[2020-09-25 14:43] LABS: TOTAL 25(OH) VITAMIN D 25.3 NG/ML (30.0-100.0)
== END 2020-09-23 12:58 | disposition home health service (06) | DRG 392 ==
LOC: M ED 13:03 → M ED INP 19:04 → ENRESERV 22:16 → M PCU 09-22 00:45
PROVIDERS: ADMIT Family Medicine; ATTEND Family Medicine
DX: K52.9 Noninfective gastroenteritis and colitis, unspecified (principal); E87.2 Acidosis; E87.0 Hyperosmolality and hypernatremia; F02.80 Dementia in other diseases classified elsewhere, unspecified severity, without behavioral disturbance, psychotic disturbance, mood disturbance, and anxiety; R29.6 Repeated falls; R53.81 Other malaise; I16.0 Hypertensive urgency; G30.9 Alzheimer's disease, unspecified; R60.0 Localized edema; Z79.899 Other long term (current) drug therapy; Z88.0 Allergy status to penicillin; Z88.2 Allergy status to sulfonamides

== ENCOUNTER 2021-05-31 09:54 | Emergency (ER) | payer MEDICARE ==
[~2021-05-31] VITALS: Ht 160 cm; Wt 62.1 kg
[~2021-05-31 09:54] MED LIST: AMLO25TA PO; BACITAB PO; D31000TA2 PO; DORZ2SOL5 OU; FIBE625T PO; HYDR-643 PO; SERT50TA29 PO; SIMV20TA22 PO; VITA-158 PO; XALA0.007 OU
[2021-05-31] MEDS ORDERED: QUET50TA4 (10:08)
[2021-05-31] MEDS ORDERED: HYDR-3363 (10:08)
[2021-05-31] MEDS ORDERED: SERT25TA21 (10:08)
[2021-05-31 12:42] LABS: BASO # 0.1 10^3/uL (0.0-0.2); BASO % 0.7 % (0.0-1.0); EOS # 0.1 10^3/uL (0.0-0.5); EOS % 1.2 % (0.0-3.0); HEMATOCRIT 39.7 % (36.0-47.0); HEMOGLOBIN 12.8 g/dl (12.0-15.5); LYMPH # 1.9 10^3/uL (1.5-5.0); LYMPH % 18.1 % (24.0-44.0); MEAN CORPUSCULAR HEMOGLOBIN 27.8 pg (27.0-33.0); MEAN CORPUSCULAR HGB CONC 32.2 g/dl (32.0-36.5); MEAN CORPUSCULAR VOLUME 86.3 fl (80.0-96.0); MONO # 0.7 10^3/uL (0.0-0.8); MONO % 6.8 % (2.0-8.0); NEUTROPHILS # 7.7 10^3/uL (1.5-8.5); NEUTROPHILS % 72.8 % (36.0-66.0); PLATELET COUNT, AUTOMATED 401 10^3/uL (150-450); WHITE BLOOD COUNT 10.6 10^3/uL (4.0-10.0)
[2021-05-31 13:12] LABS: ALBUMIN 3.4 GM/DL (3.2-5.2); ALT/SGPT 28 U/L (12-78); BILIRUBIN,DIRECT < 0.1 MG/DL (0.0-0.2); BILIRUBIN,TOTAL 0.5 MG/DL (0.2-1.0); BLOOD UREA NITROGEN 20 MG/DL (7-18); CALCIUM LEVEL 9.3 MG/DL (8.8-10.2); CARBON DIOXIDE LEVEL 25 MEQ/L (21-32); CHLORIDE LEVEL 108 MEQ/L (98-107); CREATININE FOR GFR 1.03 MG/DL (0.55-1.30); GLOMERULAR FILTRATION RATE 55.6 (>39); GLUCOSE, FASTING 116 MG/DL (70-100); LIPASE 107 U/L (73-393); POTASSIUM SERUM 5.6 MEQ/L (3.5-5.1); SODIUM LEVEL 139 MEQ/L (136-145); TOTAL PROTEIN 7.2 GM/DL (6.4-8.2)
[2021-05-31] MEDS ORDERED: ISOVUE-370 76% 100ML VIAL As Ordered ONE (13:15)
[2021-05-31] MEDS ORDERED: LORazepam 2 MG/ML VIAL IV STA (13:18)
[2021-05-31] MEDS ORDERED: LIDOCAINE 2% 5ML JELLY UROJET TOP ONE (14:00)
--- NOTE | 2021-05-31 14:07 | REP ---
INDICATION: possible constipation, dementia worsening agitation. COMPARISON: 09/21/2020 the only prior also with contrast TECHNIQUE: Standard helical technique after the intravenous administration of 100 cc Isovue 370. Oral bowel preparatory contrast was not administered prior to the exam. FINDINGS: There is a subtle but new patchy opacity in the left lung base with a small left pleural effusion. There is no evidence of a pericardial effusion. The liver, gallbladder, spleen, pancreas, adrenal glands, and kidneys are unchanged. 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 The abdominal aorta and para-aortic regions are unchanged. No adenopathy or aneurysmal dilatation has developed. There is no significant change in appearance of the bowel loops or the mesenteries. A moderate amount of content is seen throughout the colon and particularly within the rectosigmoid vault. Bone window technique throughout the examination shows no significant change in appearance of the osseous structures. Spinal degenerative changes are noted status quo. IMPRESSION: The only significant change between the examinations is development of a small left pleural effusion. Other findings as described above. <Electronically signed by Antwon Daniels > 05/31/21 [id number]
[2021-05-31 14:43] LABS: AMORPHOUS SEDIMENT SMALL (NEGATIVE); APPEARANCE, URINE CLOUDY (CLEAR); BACTERIA, URINE AUTO 1+ (NEGATIVE); BILIRUBIN, URINE AUTO NEGATIVE (NEGATIVE); BLOOD, URINE BLOOD NEGATIVE (NEGATIVE); COLOR, URINE YELLOW (YELLOW); GLUCOSE, URINE (UA) AUTO NEGATIVE (NEGATIVE); KETONE, URINE AUTO TRACE mg/dL (NEGATIVE); LEUKOCYTE ESTERASE, URINE AUTO 3+ (NEGATIVE); MUCUS, URINE SMALL (NEGATIVE); NITRITE, URINE AUTO NEGATIVE (NEGATIVE); PROTEIN, URINE AUTO 1+ mg/dL (NEGATIVE); RBC, URINE AUTO 20 /HPF (0-3); RENAL EPITHELIAL CELLS 1 /HPF; SPECIFIC GRAVITY URINE AUTO 1.038 (1.002-1.035); SQUAMOUS EPITHELIAL CELL UR AU 1 /HPF (0-6); UROBILINOGEN, URINE AUTO 0.2 mg/dL (0.0-2.0); WBC, URINE AUTO TNTC /HPF (0-3)
[2021-05-31] MEDS ORDERED: NITROFURANTOIN (MACROBID) 100 MG CAP PO ONE (15:30)
[2021-05-31] MEDS ORDERED: FOSF3PAC2 PO (15:35)
[2021-05-31 16:00] VITALS: BP 131/65
--- NOTE | 2021-06-01 09:28 | ED PDOC ---
Post-Departure Follow-Up radiology report faxed to lamin chowdhury Sarah MD Jun 01, 2021 09:28
== END 2021-05-31 16:03 | disposition home or self-care (01) ==
LOC: M ED 09:54
DX: K59.00 Constipation, unspecified (principal); F03.91 Unspecified dementia, unspecified severity, with behavioral disturbance; I10 Essential (primary) hypertension; E78.5 Hyperlipidemia, unspecified; Z79.899 Other long term (current) drug therapy; Z88.0 Allergy status to penicillin; Z88.1 Allergy status to other antibiotic agents; Z88.2 Allergy status to sulfonamides; Z85.72 Personal history of non-Hodgkin lymphomas; Z90.89 Acquired absence of other organs
CPT/HCPCS: 36415; 51701; 74177; 80048; 80076; 81001; 83690; 85025; 87088; 87186; 99284; J2060; Q9967

== ENCOUNTER → 2021-06-18 | Outpatient (REF) ==
[~2021-06-18] MED LIST changes: +FOSF3PAC2 PO; +HYDR-3363; +QUET50TA4; +SERT25TA21
== END ==
LOC: M LABSMTC 13:52
PROVIDERS: ATTEND Pediatrics
DX: Z20.822 Contact with and (suspected) exposure to COVID-19 (principal)

== ENCOUNTER → 2021-06-22 | Outpatient (REF) | payer MEDICARE ==
[2021-06-22 13:28] LABS: HEMATOCRIT 39.7 % (36.0-47.0); HEMOGLOBIN 12.7 g/dl (12.0-15.5); MEAN CORPUSCULAR HEMOGLOBIN 27.8 pg (27.0-33.0); MEAN CORPUSCULAR VOLUME 86.9 fl (80.0-96.0); PLATELET COUNT, AUTOMATED 247 10^3/uL (150-450); RED BLOOD COUNT 4.57 10^6/uL (4.00-5.40); WHITE BLOOD COUNT 11.9 10^3/uL (4.0-10.0)
[2021-06-22 13:58] LABS: ALBUMIN 3.8 GM/DL (3.2-5.2); BILIRUBIN,TOTAL 0.6 MG/DL (0.2-1.0); CALCIUM LEVEL 9.9 MG/DL (8.8-10.2); CREATININE FOR GFR 1.13 MG/DL (0.55-1.30); POTASSIUM SERUM 4.6 MEQ/L (3.5-5.1); TOTAL PROTEIN 7.2 GM/DL (6.4-8.2)
[2021-06-22 14:00] LABS: TOTAL 25(OH) VITAMIN D 14.7 NG/ML (30.0-100.0)
== END ==
LOC: SKLAB6 07:00
PROVIDERS: ATTEND Neuromusculoskeletal Medicine & OMM
DX: F03.90 Unspecified dementia, unspecified severity, without behavioral disturbance, psychotic disturbance, mood disturbance, and anxiety (principal); F32.A Depression, unspecified; Z79.899 Other long term (current) drug therapy

== ENCOUNTER → 2021-09-05 | Outpatient (CLI) | payer MEDICARE ==
[~2021-09-05] MED LIST changes: -D31000TA2 PO; +VITA100093 PO
== END ==
LOC: M RAD 09:06
PROVIDERS: ATTEND Nurse Practitioner Adult Health
DX: R41.82 Altered mental status, unspecified (principal); G31.9 Degenerative disease of nervous system, unspecified; G93.89 Other specified disorders of brain

== ENCOUNTER → 2021-09-11 | Outpatient (REF) | payer MEDICARE | LOC: SKLAB6 12:16 | PROVIDERS: ATTEND Neuromusculoskeletal Medicine & OMM | DX: M79.89 Other specified soft tissue disorders (principal) ==

== ENCOUNTER → 2021-09-18 | Outpatient (REF) | payer MEDICARE ==
[2021-09-18 15:42] LABS: HEMATOCRIT 38.5 % (36.0-47.0); HEMOGLOBIN 12.5 g/dl (12.0-15.5); MEAN CORPUSCULAR HGB CONC 32.5 g/dl (32.0-36.5); MEAN CORPUSCULAR VOLUME 89.3 fl (80.0-96.0); PLATELET COUNT, AUTOMATED 208 10^3/uL (150-450); RED BLOOD COUNT 4.31 10^6/uL (4.00-5.40); WHITE BLOOD COUNT 7.5 10^3/uL (4.0-10.0)
[2021-09-18 16:42] LABS: APPEARANCE, URINE MANUAL TURBID (CLEAR); COLOR, URINE MANUAL YELLOW (YELLOW)
[2021-09-18 16:43] LABS: BILIRUBIN, URINE MANUAL NEGATIVE (NEGATIVE); BLOOD URINE MANUAL POSITIVE (NEGATIVE); GLUCOSE, URINE (UA) MANUAL NEGATIVE (NEGATIVE); KETONE, URINE MANUAL NEGATIVE (NEGATIVE); LEUKOCYTE ESTERASE, URINE MAN POSITIVE (NEGATIVE); NITRITE, URINE MANUAL POSITIVE (NEGATIVE); PROTEIN, URINE MANUAL 2+ mg/dL (NEGATIVE); UROBILINOGEN, URINE MANUAL NORMAL (NORMAL)
[2021-09-18 16:47] LABS: SPECIFIC GRAVITY,URINE MANUAL 1.021 (1.002-1.035)
[2021-09-18 17:12] LABS: WBC, URINE 15-20 /hpf (0-3)
[2021-09-18 17:13] LABS: RBC, URINE 0-1 /hpf (0-3)
[2021-09-18 17:16] LABS: SQUAMOUS EPITHELIAL CELL URINE NONE SEEN /hpf (SMALL AMT)
[2021-09-18 17:18] LABS: AMORPHOUS SEDIMENT, URINE SMALL AMOUNT (NEGATIVE)
[2021-09-18 17:19] LABS: BACTERIA, URINE LARGE AMOUNT; HYALINE CAST, URINE NONE SEEN /lpf (0-1)
[2021-09-18 17:20] LABS: RENAL EPITHELIAL CELLS, URINE SMALL AMOUNT /hpf; TRIPLE PHOSPHATE CRYSTAL,URINE MOD AMOUNT /hpf
[2021-09-18 17:54] LABS: BLOOD UREA NITROGEN 19 MG/DL (7-18); CALCIUM LEVEL 9.2 MG/DL (8.8-10.2); CARBON DIOXIDE LEVEL 24 MEQ/L (21-32); CHLORIDE LEVEL 107 MEQ/L (98-107); CREATININE FOR GFR 0.96 MG/DL (0.55-1.30); GLOMERULAR FILTRATION RATE > 60.0 (>39); GLUCOSE, FASTING 141 MG/DL (70-100); SODIUM LEVEL 139 MEQ/L (136-145)
== END ==
LOC: SKLAB6 14:16
PROVIDERS: ATTEND Neuromusculoskeletal Medicine & OMM
DX: R41.0 Disorientation, unspecified (principal)

== ENCOUNTER → 2021-11-09 | Outpatient (REF) | payer MEDICARE ==
[2021-11-09 15:04] LABS: APPEARANCE, URINE CLOUDY (CLEAR); BACTERIA, URINE AUTO 2+ (NEGATIVE); BILIRUBIN, URINE AUTO NEGATIVE (NEGATIVE); BLOOD, URINE BLOOD NEGATIVE (NEGATIVE); COLOR, URINE AMBER (YELLOW); GLUCOSE, URINE (UA) AUTO NEGATIVE (NEGATIVE); KETONE, URINE AUTO NEGATIVE (NEGATIVE); LEUKOCYTE ESTERASE, URINE AUTO 3+ (NEGATIVE); MUCUS, URINE SMALL (NEGATIVE); NITRITE, URINE AUTO NEGATIVE (NEGATIVE); PROTEIN, URINE AUTO NEGATIVE (NEGATIVE); RBC, URINE AUTO 3 /HPF (0-3); SPECIFIC GRAVITY URINE AUTO 1.012 (1.002-1.035); SQUAMOUS EPITHELIAL CELL UR AU 1 /HPF (0-6); UROBILINOGEN, URINE AUTO 0.2 mg/dL (0.0-2.0); WBC, URINE AUTO 114 /HPF (0-3)
== END ==
LOC: SKLAB6 14:39
PROVIDERS: ATTEND Nurse Practitioner
DX: R41.82 Altered mental status, unspecified (principal)

== ENCOUNTER → 2021-11-15 | Outpatient (REF) | payer MEDICARE | LOC: SKLAB6 07:00 | PROVIDERS: ATTEND Neuromusculoskeletal Medicine & OMM | DX: E55.9 Vitamin D deficiency, unspecified (principal); Z79.899 Other long term (current) drug therapy ==

== ENCOUNTER → 2022-05-23 | Outpatient (REF) | payer MEDICARE ==
[2022-05-23 16:02] LABS: HEMATOCRIT 39.3 % (36.0-47.0); HEMOGLOBIN 12.6 g/dl (12.0-15.5); MEAN CORPUSCULAR HEMOGLOBIN 29.6 pg (27.0-33.0); MEAN CORPUSCULAR HGB CONC 32.1 g/dl (32.0-36.5); MEAN CORPUSCULAR VOLUME 92.5 fl (80.0-96.0); PLATELET COUNT, AUTOMATED 187 10^3/uL (150-450); RED BLOOD COUNT 4.25 10^6/uL (4.00-5.40); WHITE BLOOD COUNT 7.3 10^3/uL (4.0-10.0)
[2022-05-23 16:19] LABS: ALBUMIN 3.7 G/DL (3.2-5.2); BILIRUBIN,TOTAL 0.8 MG/DL (0.3-1.2); CALCIUM LEVEL 9.3 MG/DL (8.3-10.6); CREATININE FOR GFR 0.98 MG/DL (0.55-1.30); GLOMERULAR FILTRATION RATE 58.7 (>39); POTASSIUM SERUM 3.8 MMOL/L (3.5-5.1); TOTAL PROTEIN 6.6 G/DL (5.7-8.2)
== END ==
LOC: SKLAB6 13:00
PROVIDERS: ATTEND Internal Medicine
DX: U07.1 COVID-19 (principal); Z79.899 Other long term (current) drug therapy

== ENCOUNTER → 2022-05-27 | Outpatient (REF) | payer MEDICARE ==
[2022-05-27 08:34] LABS: HEMATOCRIT 37.5 % (36.0-47.0); HEMOGLOBIN 11.7 g/dl (12.0-15.5); MEAN CORPUSCULAR HGB CONC 31.2 g/dl (32.0-36.5); MEAN CORPUSCULAR VOLUME 96.2 fl (80.0-96.0); PLATELET COUNT, AUTOMATED 122 10^3/uL (150-450)
[2022-05-27 08:46] LABS: ALBUMIN 3.4 G/DL (3.2-5.2); ALKALINE PHOSPHATASE 45 U/L (46-116); ALT/SGPT 20 U/L (7.0-40); AST/SGOT 45 U/L (<34); BILIRUBIN,TOTAL 0.5 MG/DL (0.3-1.2); BLOOD UREA NITROGEN 26 MG/DL (9-23); CALCIUM LEVEL 8.5 MG/DL (8.3-10.6); CARBON DIOXIDE LEVEL 13 MMOL/L (20-31); CHLORIDE LEVEL 113 MMOL/L (98-107); CREATININE FOR GFR 0.84 MG/DL (0.55-1.30); GLOMERULAR FILTRATION RATE > 60.0 (>39); GLUCOSE, FASTING 82 MG/DL (74-106); POTASSIUM SERUM 4.9 MMOL/L (3.5-5.1); SODIUM LEVEL 140 MMOL/L (136-145); TOTAL PROTEIN 5.8 G/DL (5.7-8.2)
== END ==
LOC: SKLAB6 07:00
PROVIDERS: ATTEND Internal Medicine
DX: U07.1 COVID-19 (principal); Z79.899 Other long term (current) drug therapy

== ENCOUNTER → 2022-05-30 | Outpatient (REF) | payer MEDICARE ==
[2022-05-30 08:10] LABS: HEMATOCRIT 39.6 % (36.0-47.0); HEMOGLOBIN 12.6 g/dl (12.0-15.5); MEAN CORPUSCULAR HEMOGLOBIN 29.5 pg (27.0-33.0); MEAN CORPUSCULAR HGB CONC 31.8 g/dl (32.0-36.5); MEAN CORPUSCULAR VOLUME 92.7 fl (80.0-96.0); PLATELET COUNT, AUTOMATED 187 10^3/uL (150-450); RED BLOOD COUNT 4.27 10^6/uL (4.00-5.40); WHITE BLOOD COUNT 6.8 10^3/uL (4.0-10.0)
[2022-05-30 08:42] LABS: ALBUMIN 3.6 G/DL (3.2-5.2); ALKALINE PHOSPHATASE 52 U/L (46-116); ALT/SGPT 15 U/L (7.0-40); AST/SGOT 21 U/L (<34); BILIRUBIN,TOTAL 0.5 MG/DL (0.3-1.2); BLOOD UREA NITROGEN 19 MG/DL (9-23); CARBON DIOXIDE LEVEL 25 MMOL/L (20-31); CHLORIDE LEVEL 105 MMOL/L (98-107); CREATININE FOR GFR 0.86 MG/DL (0.55-1.30); GLOMERULAR FILTRATION RATE > 60.0 (>39); GLUCOSE, FASTING 89 MG/DL (74-106); POTASSIUM SERUM 4.2 MMOL/L (3.5-5.1); SODIUM LEVEL 137 MMOL/L (136-145); TOTAL PROTEIN 6.1 G/DL (5.7-8.2)
== END ==
LOC: SKLAB6 07:00
PROVIDERS: ATTEND Internal Medicine
DX: U07.1 COVID-19 (principal); Z79.899 Other long term (current) drug therapy

== ENCOUNTER → 2022-06-10 | Outpatient (REF) | LOC: M LAB 06:42 | PROVIDERS: ATTEND Neuromusculoskeletal Medicine & OMM | DX: Z79.899 Other long term (current) drug therapy (principal) ==

== ENCOUNTER → 2022-06-10 | Outpatient (REF) | payer MEDICARE ==
[2022-06-10 07:23] LABS: HEMOGLOBIN 12.2 g/dl (12.0-15.5); MEAN CORPUSCULAR HEMOGLOBIN 29.5 pg (27.0-33.0); MEAN CORPUSCULAR HGB CONC 32.1 g/dl (32.0-36.5); MEAN CORPUSCULAR VOLUME 91.8 fl (80.0-96.0); PLATELET COUNT, AUTOMATED 190 10^3/uL (150-450); RED BLOOD COUNT 4.14 10^6/uL (4.00-5.40); WHITE BLOOD COUNT 6.2 10^3/uL (4.0-10.0)
[2022-06-10 07:32] LABS: BLOOD UREA NITROGEN 15 MG/DL (9-23); CALCIUM LEVEL 8.9 MG/DL (8.3-10.6); CARBON DIOXIDE LEVEL 21 MMOL/L (20-31); CHLORIDE LEVEL 109 MMOL/L (98-107); CREATININE FOR GFR 0.84 MG/DL (0.55-1.30); GLOMERULAR FILTRATION RATE > 60.0 (>39); GLUCOSE, FASTING 88 MG/DL (74-106); POTASSIUM SERUM 4.1 MMOL/L (3.5-5.1); SODIUM LEVEL 143 MMOL/L (136-145)
== END ==
LOC: SKLAB6 06:59
PROVIDERS: ATTEND Internal Medicine
DX: R29.6 Repeated falls (principal)

== ENCOUNTER → 2022-06-20 | Outpatient (REF) | payer MEDICARE ==
[2022-06-20 08:22] LABS: HEMATOCRIT 40.9 % (36.0-47.0); HEMOGLOBIN 13.1 g/dl (12.0-15.5); MEAN CORPUSCULAR HEMOGLOBIN 29.4 pg (27.0-33.0); MEAN CORPUSCULAR VOLUME 91.9 fl (80.0-96.0); PLATELET COUNT, AUTOMATED 219 10^3/uL (150-450); RED BLOOD COUNT 4.45 10^6/uL (4.00-5.40); WHITE BLOOD COUNT 7.1 10^3/uL (4.0-10.0)
[2022-06-20 08:40] LABS: ALBUMIN 3.6 G/DL (3.2-5.2); ALKALINE PHOSPHATASE 66 U/L (46-116); ALT/SGPT 21 U/L (7.0-40); AST/SGOT 22 U/L (<34); BILIRUBIN,TOTAL 0.5 MG/DL (0.3-1.2); BLOOD UREA NITROGEN 16 MG/DL (9-23); CALCIUM LEVEL 9.2 MG/DL (8.3-10.6); CARBON DIOXIDE LEVEL 24 MMOL/L (20-31); CHLORIDE LEVEL 109 MMOL/L (98-107); CREATININE FOR GFR 0.84 MG/DL (0.55-1.30); GLOMERULAR FILTRATION RATE > 60.0 (>39); GLUCOSE, FASTING 92 MG/DL (74-106); POTASSIUM SERUM 4.6 MMOL/L (3.5-5.1); SODIUM LEVEL 141 MMOL/L (136-145); TOTAL PROTEIN 6.2 G/DL (5.7-8.2)
== END ==
LOC: SKLAB6 07:00
PROVIDERS: ATTEND Internal Medicine
DX: F03.90 Unspecified dementia, unspecified severity, without behavioral disturbance, psychotic disturbance, mood disturbance, and anxiety (principal); F32.A Depression, unspecified

== ENCOUNTER → 2022-11-11 | Outpatient (REF) | payer MEDICARE | LOC: SKLAB6 10:12 | PROVIDERS: ATTEND Internal Medicine | DX: R05.9 Cough, unspecified (principal) ==

== ENCOUNTER → 2022-11-14 | Outpatient (REF) | payer MEDICARE | LOC: SKLAB6 07:00 | PROVIDERS: ATTEND Internal Medicine | DX: E55.9 Vitamin D deficiency, unspecified (principal); Z79.899 Other long term (current) drug therapy ==

== ENCOUNTER 2023-04-24 21:13 | Observation (INO) | payer MEDICARE ==
[~2023-04-24] VITALS: Ht 160 cm; Wt 65.0 kg
[2023-04-24 21:40] VITALS: TEMP 98.4
[2023-04-24 22:01] LABS: BASO # 0.1 10^3/uL (0.0-0.2); BASO % 0.7 % (0.0-1.0); EOS # 0.2 10^3/uL (0.0-0.5); EOS % 1.6 % (0.0-3.0); HEMATOCRIT 39.3 % (36.0-47.0); HEMOGLOBIN 13.1 g/dl (12.0-15.5); LYMPH # 2.3 10^3/uL (1.5-5.0); LYMPH % 18.8 % (24.0-44.0); MEAN CORPUSCULAR HGB CONC 33.3 g/dl (32.0-36.5); MEAN CORPUSCULAR VOLUME 87.1 fl (80.0-96.0); MONO # 0.9 10^3/uL (0.0-0.8); MONO % 7.2 % (2.0-8.0); NEUTROPHILS # 8.7 10^3/uL (1.5-8.5); NEUTROPHILS % 71.4 % (36.0-66.0); PLATELET COUNT, AUTOMATED 208 10^3/uL (150-450); RED BLOOD COUNT 4.51 10^6/uL (4.00-5.40); WHITE BLOOD COUNT 12.2 10^3/uL (4.0-10.0)
[2023-04-24 22:22] LABS: ERYTHROCYTE SEDIMENTATION RATE 26 mm/hr (0-30)
[2023-04-24 22:31] LABS: ALBUMIN 3.6 G/DL (3.2-5.2); ALKALINE PHOSPHATASE 52 U/L (46-116); ALT/SGPT 30 U/L (7.0-40); AST/SGOT 40 U/L (<34); BILIRUBIN,DIRECT 0.1 MG/DL (<0.4); BILIRUBIN,TOTAL 0.6 MG/DL (0.3-1.2); BLOOD UREA NITROGEN 19 MG/DL (9-23); CALCIUM LEVEL 8.8 MG/DL (8.3-10.6); CARBON DIOXIDE LEVEL 21 MMOL/L (20-31); CHLORIDE LEVEL 108 MMOL/L (98-107); CREATININE FOR GFR 0.86 MG/DL (0.55-1.30); GLOMERULAR FILTRATION RATE > 60.0 (>39); GLUCOSE, FASTING 126 MG/DL (74-106); POTASSIUM SERUM 4.8 MMOL/L (3.5-5.1); SODIUM LEVEL 139 MMOL/L (136-145); TOTAL PROTEIN 6.6 G/DL (5.7-8.2)
[2023-04-24 22:39] LABS: RSV AMPLIFICATION NEGATIVE (NEGATIVE)
[2023-04-24] MEDS ORDERED: ONDA-83 PO (22:59)
[2023-04-24] MEDS ORDERED: VITA1CAP25 PO (22:59)
[2023-04-24] MEDS ORDERED: SORB70SO36 PO (22:59)
[2023-04-24] MEDS ORDERED: MILK400S12 PO (22:59)
[2023-04-24] MEDS ORDERED: NEXI20CA33 PO (22:59)
[2023-04-24] MEDS ORDERED: MIRA3350 PO (22:59)
[2023-04-24] MEDS ORDERED: ATIV1TAB10 PO (22:59)
[2023-04-24] MEDS ORDERED: SERO1TAB2 PO (22:59)
[2023-04-24] MEDS ORDERED: ACET-910 PO (22:59)
[2023-04-24] MEDS ORDERED: SERT50TA29 PO (22:59)
[2023-04-24] MEDS ORDERED: MELA1TAB9 PO (22:59)
[2023-04-24] MEDS ORDERED: HOME MED LIST COMPLETE! XX SCH (23:00)
[2023-04-24] MEDS ORDERED: CLINDAMYCIN 600 MG in IV 1 EA IV ONE (23:05)
[2023-04-25 00:05] VITALS: O2SAT 94
[2023-04-25] MEDS ORDERED: ACETAMINOPHEN TAB 650MG DOSE (2X325MG) PO PRN (00:10)
[2023-04-25 01:31] VITALS: BP 158/68
[2023-04-25] MEDS ORDERED: VANCOMYCIN HCL 750 MG, VIAL MATE ADAPTER 1 EACH in D5W 250 ML IV ONE (02:00)
[2023-04-25] MEDS ORDERED: VANCOMYCIN HCL 500 MG in D5W MINI-BAG PLUS 100 ML IV ONE (03:00)
[2023-04-25] MEDS ORDERED: HEPARIN SOD (PORCINE) 5000UNITS/ML 1ML VIAL/SYRINGE SC SCH (06:00)
[2023-04-25] MEDS ORDERED: QUEtiapine FUMARATE 50MG TAB PO SCH (09:00)
[2023-04-25] MEDS ORDERED: OMEPRAZOLE 20MG CAP PO SCH (09:00)
[2023-04-25] MEDS ORDERED: SERTRALINE HCL 25 MG TABLET PO SCH (09:00)
[2023-04-25] MEDS ORDERED: LORazepam 0.5 MG TAB PO SCH (09:00)
[2023-04-25] MEDS ORDERED: PILL CUTTER 1 EACH XX PRN (09:25)
[2023-04-25 12:01] LABS: BLOOD UREA NITROGEN 19 MG/DL (9-23); CALCIUM LEVEL 8.9 MG/DL (8.3-10.6); CARBON DIOXIDE LEVEL 21 MMOL/L (20-31); CHLORIDE LEVEL 105 MMOL/L (98-107); CREATININE FOR GFR 0.83 MG/DL (0.55-1.30); GLOMERULAR FILTRATION RATE > 60.0 (>39); GLUCOSE, FASTING 145 MG/DL (74-106); POTASSIUM SERUM 4.1 MMOL/L (3.5-5.1); SODIUM LEVEL 136 MMOL/L (136-145)
[2023-04-25] MEDS ORDERED: PROBCAP14 PO (14:12)
[2023-04-25] MEDS ORDERED: CLIN150C17 PO (14:12)
[2023-04-25] MEDS ORDERED: VANCOMYCIN HCL 1,000 MG, VIAL MATE ADAPTER 1 EACH in D5W 250 ML IV SCH (21:00)
== END 2023-04-25 15:20 | disposition home or self-care (01) ==
LOC: EDSEX 21:13 → EDBD 21:13 → M ED 21:13 → M ED INP 04-25 00:09 → INTOOBSV 04-25 00:09 → M MS5PR 04-25 02:47
PROVIDERS: ADMIT Internal Medicine; ATTEND Internal Medicine
DX: L03.012 Cellulitis of left finger (principal); F03.90 Unspecified dementia, unspecified severity, without behavioral disturbance, psychotic disturbance, mood disturbance, and anxiety; Z79.899 Other long term (current) drug therapy; Z88.0 Allergy status to penicillin; Z88.2 Allergy status to sulfonamides
CPT/HCPCS: 10060; 36415; 73140; 80048; 80076; 83605; 85025; 85652; 86140; 87040; 87077; 87186; 87631; 93041; 94760; 96365; 96367; 99285; G0378; J0737; J3370

== ENCOUNTER → 2023-05-02 | Outpatient (REF) | payer MEDICARE ==
[~2023-05-02] MED LIST changes: +ACET-910 PO; +ATIV1TAB10 PO; +CLIN150C17 PO; +MELA1TAB9 PO; +MILK400S12 PO; +MIRA3350 PO; +NEXI20CA33 PO; +ONDA-83 PO; +PROBCAP14 PO; +SERO1TAB2 PO; +SORB70SO36 PO; +VITA1CAP25 PO
[2023-05-02 05:52] LABS: HEMATOCRIT 35.1 % (36.0-47.0); HEMOGLOBIN 11.6 g/dl (12.0-15.5); MEAN CORPUSCULAR HEMOGLOBIN 29.2 pg (27.0-33.0); MEAN CORPUSCULAR VOLUME 88.4 fl (80.0-96.0); PLATELET COUNT, AUTOMATED 230 10^3/uL (150-450); RED BLOOD COUNT 3.97 10^6/uL (4.00-5.40); WHITE BLOOD COUNT 6.8 10^3/uL (4.0-10.0)
== END ==
LOC: SKLAB6 07:00
PROVIDERS: ATTEND Internal Medicine
DX: L03.012 Cellulitis of left finger (principal)

== ENCOUNTER → 2023-05-16 | Outpatient (REF) | payer MEDICARE ==
[2023-05-16 08:32] LABS: HEMATOCRIT 37.4 % (36.0-47.0); HEMOGLOBIN 12.4 g/dl (12.0-15.5); MEAN CORPUSCULAR HEMOGLOBIN 29.5 pg (27.0-33.0); MEAN CORPUSCULAR HGB CONC 33.2 g/dl (32.0-36.5); PLATELET COUNT, AUTOMATED 168 10^3/uL (150-450); WHITE BLOOD COUNT 6.5 10^3/uL (4.0-10.0)
[2023-05-16 08:48] LABS: BLOOD UREA NITROGEN 27 MG/DL (9-23); CALCIUM LEVEL 8.8 MG/DL (8.3-10.6); CARBON DIOXIDE LEVEL 20 MMOL/L (20-31); CHLORIDE LEVEL 113 MMOL/L (98-107); CREATININE FOR GFR 0.93 MG/DL (0.55-1.30); GLOMERULAR FILTRATION RATE > 60.0 (>39); GLUCOSE, FASTING 107 MG/DL (74-106); POTASSIUM SERUM 3.8 MMOL/L (3.5-5.1); SODIUM LEVEL 140 MMOL/L (136-145)
== END ==
LOC: SKLAB6 06:56
PROVIDERS: ATTEND Internal Medicine
DX: L08.9 Local infection of the skin and subcutaneous tissue, unspecified (principal)

== ENCOUNTER → 2023-06-07 | Outpatient (REF) | payer MEDICARE ==
[2023-06-07 08:22] LABS: HEMATOCRIT 39.8 % (36.0-47.0); HEMOGLOBIN 13.1 g/dl (12.0-15.5); MEAN CORPUSCULAR HEMOGLOBIN 29.2 pg (27.0-33.0); MEAN CORPUSCULAR HGB CONC 32.9 g/dl (32.0-36.5); MEAN CORPUSCULAR VOLUME 88.6 fl (80.0-96.0); PLATELET COUNT, AUTOMATED 206 10^3/uL (150-450); RED BLOOD COUNT 4.49 10^6/uL (4.00-5.40)
== END ==
LOC: SKLAB6 05-28 07:00
PROVIDERS: ATTEND Nurse Practitioner Adult Health
DX: L03.012 Cellulitis of left finger (principal)

== ENCOUNTER → 2023-11-20 | Outpatient (REF) | payer OTHER, MEDICARE ==
[~2023-11-20] MED LIST changes: -MELA1TAB9 PO; +MELA5TAB58 PO
== END ==
LOC: SKLAB6 07:00
PROVIDERS: ATTEND Internal Medicine
DX: E55.9 Vitamin D deficiency, unspecified (principal)

== ENCOUNTER → 2024-03-19 | Outpatient (REF) | payer OTHER, MEDICARE ==
[2024-03-19 12:16] LABS: HEMATOCRIT 43.3 % (36.0-47.0); HEMOGLOBIN 14.2 g/dl (12.0-15.5); MEAN CORPUSCULAR HEMOGLOBIN 30.1 pg (27.0-33.0); MEAN CORPUSCULAR HGB CONC 32.8 g/dl (32.0-36.5); MEAN CORPUSCULAR VOLUME 91.7 fl (80.0-96.0); PLATELET COUNT, AUTOMATED 168 10^3/uL (150-450); RED BLOOD COUNT 4.72 10^6/uL (4.00-5.40)
[2024-03-19 12:51] LABS: ALBUMIN 3.5 G/DL (3.2-5.2); ALKALINE PHOSPHATASE 69 U/L (46-116); ALT/SGPT 33 U/L (7.0-40); AST/SGOT 24 U/L (<34); BILIRUBIN,TOTAL 0.4 MG/DL (0.3-1.2); BLOOD UREA NITROGEN 13 MG/DL (9-23); CALCIUM LEVEL 9.4 MG/DL (8.3-10.6); CARBON DIOXIDE LEVEL 22 MMOL/L (20-31); CHLORIDE LEVEL 111 MMOL/L (98-107); CREATININE FOR GFR 0.85 MG/DL (0.55-1.30); GLOMERULAR FILTRATION RATE > 60.0 (>39); GLUCOSE, FASTING 169 MG/DL (74-106); SODIUM LEVEL 138 MMOL/L (136-145); TOTAL PROTEIN 6.6 G/DL (5.7-8.2)
== END ==
LOC: SKLAB6 11:29
PROVIDERS: ATTEND Internal Medicine
DX: R53.83 Other fatigue (principal)

== ENCOUNTER → 2024-06-21 | Outpatient (REF) | payer OTHER, MEDICARE | LOC: SKLAB6 13:53 | PROVIDERS: ATTEND Internal Medicine | DX: R19.7 Diarrhea, unspecified (principal) ==

== ENCOUNTER → 2024-06-24 | Outpatient (REF) | payer OTHER, MEDICARE ==
[2024-06-24 12:02] LABS: ALBUMIN 3.5 G/DL (3.2-5.2); ALKALINE PHOSPHATASE 66 U/L (35-104); ALT/SGPT 37 U/L (7.0-40); AST/SGOT 29 U/L (<34); BILIRUBIN,TOTAL 0.6 MG/DL (0.3-1.2); BLOOD UREA NITROGEN 15 MG/DL (9-23); CALCIUM LEVEL 8.8 MG/DL (8.3-10.6); CARBON DIOXIDE LEVEL 20 MMOL/L (20-31); CHLORIDE LEVEL 108 MMOL/L (98-107); CREATININE FOR GFR 0.92 MG/DL (0.55-1.30); GLOMERULAR FILTRATION RATE > 60.0 (>39); GLUCOSE, FASTING 157 MG/DL (74-106); POTASSIUM SERUM 4.1 MMOL/L (3.5-5.1); SODIUM LEVEL 142 MMOL/L (136-145); TOTAL PROTEIN 6.2 G/DL (5.7-8.2)
[2024-06-24 14:22] LABS: HEMATOCRIT 40.9 % (36.0-47.0); HEMOGLOBIN 13.7 g/dl (12.0-15.5); MEAN CORPUSCULAR HEMOGLOBIN 30.4 pg (27.0-33.0); MEAN CORPUSCULAR HGB CONC 33.5 g/dl (32.0-36.5); MEAN CORPUSCULAR VOLUME 90.7 fl (80.0-96.0); PLATELET COUNT, AUTOMATED 178 10^3/uL (150-450); RED BLOOD COUNT 4.51 10^6/uL (4.00-5.40)
== END ==
LOC: SKLAB6 08:23
PROVIDERS: ATTEND Internal Medicine
DX: F03.90 Unspecified dementia, unspecified severity, without behavioral disturbance, psychotic disturbance, mood disturbance, and anxiety (principal)

== ENCOUNTER 2024-07-03 21:01 | Emergency (ER) | payer MEDICARE, OTHER ==
[~2024-07-03] VITALS: Ht 162.6 cm; Wt 72.7 kg
[2024-07-03] MEDS: LevoFLOXacin IV 750 MG in IV 1 EA IV ONE (23:46)
[2024-07-03 23:47] VITALS: TEMP 96.9
[2024-07-04 01:15] VITALS: BP 146/67; O2SAT 94
== END 2024-07-04 13:37 | disposition home or self-care (01) ==
LOC: EDBD 21:01 → M ED 21:01
DX: R41.82 Altered mental status, unspecified (principal); N39.0 Urinary tract infection, site not specified; I10 Essential (primary) hypertension; E78.5 Hyperlipidemia, unspecified; K21.9 Gastro-esophageal reflux disease without esophagitis; F03.90 Unspecified dementia, unspecified severity, without behavioral disturbance, psychotic disturbance, mood disturbance, and anxiety; E55.9 Vitamin D deficiency, unspecified; F32.A Depression, unspecified; K76.0 Fatty (change of) liver, not elsewhere classified; N20.0 Calculus of kidney; Z79.899 Other long term (current) drug therapy; Z88.0 Allergy status to penicillin; Z88.2 Allergy status to sulfonamides
CPT/HCPCS: 70450; 74176; 87040; 93005; 96365; 96366; 99284; J1956

== ENCOUNTER → 2024-07-03 | Outpatient (REF) | payer MEDICARE, OTHER | LOC: EDBD → SKLAB6 07-02 22:55 | PROVIDERS: ATTEND Internal Medicine | DX: R06.02 Shortness of breath (principal) ==

== ENCOUNTER → 2024-07-06 | Outpatient (REF) | payer MEDICARE ==
[2024-07-06 13:54] LABS: HEMATOCRIT 41.3 % (36.0-47.0); HEMOGLOBIN 13.4 g/dl (12.0-15.5); MEAN CORPUSCULAR HEMOGLOBIN 30.2 pg (27.0-33.0); MEAN CORPUSCULAR HGB CONC 32.4 g/dl (32.0-36.5); PLATELET COUNT, AUTOMATED 179 10^3/uL (150-450); RED BLOOD COUNT 4.44 10^6/uL (4.00-5.40); WHITE BLOOD COUNT 8.3 10^3/uL (4.0-10.0)
[2024-07-06 16:45] LABS: BLOOD UREA NITROGEN 16 MG/DL (9-23); CALCIUM LEVEL 8.7 MG/DL (8.3-10.6); CARBON DIOXIDE LEVEL 17 MMOL/L (20-31); CHLORIDE LEVEL 107 MMOL/L (98-107); CREATININE FOR GFR 0.94 MG/DL (0.55-1.30); GLOMERULAR FILTRATION RATE > 60.0 (>39); GLUCOSE, FASTING 167 MG/DL (74-106); POTASSIUM SERUM 4.1 MMOL/L (3.5-5.1); SODIUM LEVEL 141 MMOL/L (136-145)
== END ==
LOC: SKLAB6 07:50
PROVIDERS: ATTEND Internal Medicine
DX: N39.0 Urinary tract infection, site not specified (principal)

== ENCOUNTER → 2024-08-02 | Outpatient (REF) | payer MEDICARE | LOC: SKLAB6 11:15 | PROVIDERS: ATTEND Internal Medicine | DX: R05.9 Cough, unspecified (principal) ==

== ENCOUNTER → 2024-08-23 | Outpatient (REF) | payer MEDICARE | LOC: SKLAB6 07:15 | PROVIDERS: ATTEND Internal Medicine | DX: R13.10 Dysphagia, unspecified (principal); M19.011 Primary osteoarthritis, right shoulder; M19.012 Primary osteoarthritis, left shoulder; M47.9 Spondylosis, unspecified ==

== ENCOUNTER → 2024-08-31 | Outpatient (REF) | payer MEDICARE | LOC: SKLAB6 13:53 | PROVIDERS: ATTEND Internal Medicine | DX: R10.9 Unspecified abdominal pain (principal) ==

== ENCOUNTER → 2024-12-20 | Outpatient (REF) | payer MEDICARE ==
[~2024-12-20] MED LIST changes: +SORB70SO PO; -SORB70SO36 PO
[2024-12-20 08:25] LABS: PLATELET COUNT, AUTOMATED 249 10^3/uL (150-450)
[2024-12-20 08:57] LABS: ALT/SGPT 33.0 U/L (7.0-40); AST/SGOT 34.0 U/L (<34); CALCIUM LEVEL 9.5 MG/DL (8.3-10.6); CARBON DIOXIDE LEVEL 24.0 MMOL/L (20-31); CHLORIDE LEVEL 102.0 MMOL/L (98-107); CREATININE FOR GFR 0.8 MG/DL (0.55-1.30); GLOMERULAR FILTRATION RATE 74.9 (>39); POTASSIUM SERUM 4.1 MMOL/L (3.5-5.1); SODIUM LEVEL 140.0 MMOL/L (136-145)
== END ==
LOC: SKLAB6 07:21
PROVIDERS: ATTEND Internal Medicine
DX: F32.A Depression, unspecified (principal); F03.90 Unspecified dementia, unspecified severity, without behavioral disturbance, psychotic disturbance, mood disturbance, and anxiety

== ENCOUNTER → 2025-01-20 | Outpatient (REF) | payer MEDICARE | LOC: SKLAB6 14:02 | PROVIDERS: ATTEND Internal Medicine | DX: Z53.8 Procedure and treatment not carried out for other reasons (principal) ==

== ENCOUNTER → 2025-01-27 | Outpatient (REF) | payer MEDICARE | LOC: EEVIPCON 17:04 → SKLAB6 17:04 | PROVIDERS: ATTEND Internal Medicine | DX: N89.8 Other specified noninflammatory disorders of vagina (principal) ==

== ENCOUNTER → 2025-05-18 | Outpatient (REF) | payer MEDICARE | LOC: SKLAB6 10:49 | PROVIDERS: ATTEND Family Medicine | DX: Z11.2 Encounter for screening for other bacterial diseases (principal); Z20.818 Contact with and (suspected) exposure to other bacterial communicable diseases ==